=== PATIENT | male | born 1990 ===

== ENCOUNTER → 2016-06-15 | Outpatient (CLI) | payer OTHER ==
--- NOTE | 2016-06-15 12:15 | DX ---
Left Knee, 5 Views, at 11:29 a.m. Clinical History: 25-year-old male with left knee pain after jumping into a 3 foot sandpit yesterday. Comparison Study: None. Findings: There is a moderate-sized suprapatellar joint effusion present. There is no acute fracture or dislocation. Tiny posterior patellar degenerative spurs are seen, and there is some mild degenerat delia pinnacling of the tibial spine with no avulsion appreciated. On the sunrise view, there is no pat ellofemoral joint space narrowing, or significant tilting or nate subluxation. There is no loose ost eochondral body. Impression: Moderate suprapatellar joint effusion, with no acute osseous abnormality. If there is further clinical concern regarding the patient's knee pain, MR imaging could be considere d.
== END ==
LOC: BMCIMAGING 11:33
PROVIDERS: ATTEND Emergency Medicine
DX: M25.462 Effusion, left knee (principal)